=== PATIENT | female | born 1965 | race American Indian/Alaskan Native ===

== ENCOUNTER 2021-10-21 07:46 | Day surgery (SDC) | payer BC ==
[2021-10-20 13:24] LABS: Basophils % (Auto) 0.5 % (0.0-1.8); Eosinophils # (Auto) 0.1 K/mm3 (0.0-0.4); Hematocrit 39.8 % (30.3-42.9); Hemoglobin 13.3 gm/dl (10.1-14.3); Lymphocytes # (Auto) 3.6 K/mm3 (1.2-5.4); Lymphocytes % (Auto) 40.6 % (13.4-35.0); Mean Corpuscular HGB Conc 33 % (30-34); Mean Corpuscular Volume 82 fl (79-97); Monocytes # (Auto) 0.6 K/mm3 (0.0-0.8); Monocytes % (Auto) 6.3 % (0.0-7.3); Platelet Count 248 K/mm3 (140-440); Red Blood Count 4.88 M/mm3 (3.65-5.03); Red Cell Distribution Width 14.7 % (13.2-15.2)
[2021-10-20 13:42] LABS: Alanine Aminotransferase 15 units/L (7-56); Albumin 4.7 g/dL (3.9-5); BUN/Creatinine Ratio 26; Blood Urea Nitrogen 29 mg/dL (7-17); Hemolysis Index 65
[2021-10-21] MEDS ORDERED: SILVER NITRATE APPLICATOR 1 EA TP ONE (07:52)
[2021-10-21] MEDS ORDERED: LACTATED RINGERS 1,000 ML ONE (08:40)
--- NOTE | 2021-10-21 08:42 | History and Physical Report ---
History of Present Illness Date of examination: 10/20/21 Chief complaint: postmenopausal bleeding History of present illness: Pt is a 56 year old -[place] female who presents for surgical evaluation of postmenopausal bleeding. Past History Past Medical History: hypertension, diabetes, high cholesterol, other (obesity) Past Surgical History: section [employer] History: fibroids Family/Genetic History: diabetes, heart disease Social history: no significant social history - Obstetrical History : 2 Para: 2 Hx # Term Pregnancies: 2 Number of Pregnancies: 0 Spontaneous Abortions: 0 Induced : 0 Number of Living Children: 2 Medications and Allergies Allergies Allergy/AdvReac Type Severity Reaction Status Date / Time No Known Allergies Allergy Unverified 10/12/21 16:23 Home Medications Medication Instructions Recorded Confirmed Last Taken Type AtorvaSTATin [Lipitor] 20 mg PO QHS 10/12/21 10/12/21 Unknown History Lisinopril [Zestril] 5 mg PO DAILY 10/12/21 10/12/21 Unknown History Triamterene 75 mg PO DAILY 10/12/21 10/12/21 Unknown History metFORMIN [Glucophage] 500 mg PO QDAY 10/12/21 10/12/21 Unknown History - Physical Exam Breasts: Positive: deferred Cardiovascular: Regular rate Lungs: Positive: Clear to auscultation Abdomen: Positive: soft (obese ) Extremities: Positive: normal Results Result Diagrams: 10/20/21 12:50 10/20/21 12:50 Abnormal lab results 10/20/21 10/20/21 Range/Units 12:50 12:50 MCH 27 L (28-32) pg Lymph % (Auto) 40.6 H (13.4-35.0) % BUN 29 H (7-17) mg/dL Glucose 118 H (65-100) mg/dL Total Protein 8.9 H (6.3-8.2) g/dL All other labs normal. Assessment and Plan A: Postmenopausal Bleeding Fibroid Uterus Diabetes Hyperlipidemia Hypertension P: Exam under anesthesia, hysteroscopy, dilation and curettage, Myosure endometrial sampling and other indicated procedures
[2021-10-21] MEDS ORDERED: ceFAZolin/Water 2 GM/20 ML 2 GM/20 ML SYRINGE IV SCH (09:00)
[2021-10-21] MEDS ORDERED: HYDROmorphone 0.5 MG/0.5 ML INJ IV PRN ×2 (09:07→09:30)
--- NOTE | 2021-10-21 09:07 | Anesthesia Day of Surgery ---
Anesthesia Day of Surgery - Day of Surgery Patient Examined: Yes Patient H&P Reviewed: Yes Patient is NPO: Yes
--- NOTE | 2021-10-21 09:08 | Anesthesia Consultation ---
Anesthesia Consult and Med Hx Date of service: 10/21/21 - Airway Anesthetic Teeth Evaluation: Crowns (Missing) ROM Head & Neck: Adequate Mental/Hyoid Distance: Adequate Mallampati Class: Class II Intubation Access Assessment: Probably Good - Pre-Operative Health Status ASA Pre-Surgery Classification: ASA2 Proposed Anesthetic Plan: General - Pulmonary Hx Smoking: No Hx Sleep Apnea: No (HIGH RISK ON NIC SCREEN-SNORES) - Cardiovascular System Hx Hypertension: Yes Hx Heart Attack/AMI: No - Gastrointestinal Hx Gastroesophageal Reflux Disease: No - Endocrine Hx Non-Insulin Dependent Diabetes: Yes - Hematic Hx Anemia: No Hx Sickle Cell Disease: No - Other Systems Hx Cancer: No Hx Obesity: Yes - Additional Comments Anesthesia Medical History Comments: NO BLOOD-JEHOVA'S WITNESS
[2021-10-21] MEDS ORDERED: ONDANSETRON 4 MG/2 ML INJ IV PRN (09:30)
[2021-10-21] MEDS ORDERED: LIDOCAINE MPF (2%) 20 MG/1 ML VIAL 5 ML ONE (09:56)
[2021-10-21] MEDS ORDERED: ONDANSETRON 4 MG/2 ML INJ ONE (09:56)
[2021-10-21] MEDS ORDERED: fentaNYL 100 MCG/2 ML INJ ONE (09:56)
[2021-10-21] MEDS ORDERED: propofoL 200 MG/20 ML VIAL IV ONE (09:57)
[2021-10-21] MEDS ORDERED: LACTATED RINGERS 1,000 ML IV SCH (10:00)
[2021-10-21] MEDS ORDERED: SODIUM CHLORIDE 0.9% IRRIG SOLN 2000 ML IR ONE (11:00)
[2021-10-21] MEDS ORDERED: PHENYLEPHRINE/NS 1,000 MCG/10 ML SYRINGE (OR USE) IV ONE (11:11)
--- NOTE | 2021-10-21 11:18 | Operative Report ---
Operative Report Operative Report: Date of Procedure: October 21, 2021 Preoperative Diagnosis: 1) Postmenopausal Bleeding 2) Fibroid Uterus 3) Obesity Postoperative Diagnosis: Same 4) Endometrial Polyp Procedure: 1)Hysteroscopy 2)Myosure Endometrial Sampling with polypectomy Surgeon: Ivette Wheeler M.D. Findings: 1) Anteverted uterus that sounded to 8.5 cm 2) Proliferative endoemtrium with submucosal fibroid in right lower uterine segment and left suspected endometrial polyp originating from left ostium Anesthesia: General with LMA Estimated blood loss: 30 mL Specimens: Endometrial curettings to pathology Drains: None Complications: None Disposition: Stable to PACU Indications for procedure: Pt is a 56-year-old G2, P2 presents for surgical management of postmenopausal bleeding. Operation in detail: After the risks, benefits, alternatives and complications of the procedure were explained to the patient, she gave informed consent for the procedure. She was subsequently taken to the operating room and placed in the dorsal supine position with her IV noted to be running well. SCDs noted to be in place and functioning. General anesthesia was then induced without difficulty. The patient was then placed in dorsal lithotomy position and prepped and draped in normal sterile fashion. A timeout was performed. An exam under anesthesia was performed yielding a mobile antevered uterus. A red rubber catheter was used to drain the bladder yielding clear urine. An open sided speculum was then placed into the vagina for adequate visualization of the cervix. The anterior lip of the cervix was then grasped with a tenaculum for traction. The uterus was sounded to 8.5 cm. The cervix was then dilated to accommodate a #19 Akhtar dilator. At this time, a hysteroscope was introduced to visualize the endometrial cavity which revealed proliferative endoemtrium with submucosal fibroid in right lower uterine segment and left suspected endometrial polyp originating from left ostium . The Myosure device was used shave down the fibroid, excise the polyp, and sample the endometrium. All curettings were sent to pathology. All instruments were removed from the uterus atraumatically. A sharp curettage was then performed and the curettings were sent to pathology as well. At this time, the single-tooth tenaculum was removed from the cervix. Silver nitrate was placed on the tenaculum puncture sites for hemostasis. All instruments were removed from the vagina. At the 7 oclock position of the introitus, a small laceration was noted in the atrophic mucosa was noted after removal of the speculum. The laceration was reappoximated with a figure of eight of 3-0 Vicryl. Hemostasis was noted. The procedure was then ended. The patient was placed into the dorsal supine position and extubated without difficulty. She was subsequently taken to the PACU in stable condition. She tolerated the procedure well. All counts were correct 2.
--- NOTE | 2021-10-21 11:19 | Short Stay Summary ---
Short Stay Documentation Date of service: 10/21/21 - History H&P: dictated Social history: no significant social history - Allergies and Medications Current Medications: Allergies No Known Allergies Allergy (Unverified 10/12/21 16:23) Home Medications Medication Instructions Recorded Confirmed Last Taken Type AtorvaSTATin [Lipitor] 20 mg PO QHS 10/12/21 10/12/21 Unknown History Lisinopril [Zestril] 5 mg PO DAILY 10/12/21 10/12/21 Unknown History Triamterene 75 mg PO DAILY 10/12/21 10/12/21 Unknown History metFORMIN [Glucophage] 500 mg PO QDAY 10/12/21 10/12/21 Unknown History Active Medications Hydromorphone HCl (Hydromorphone 0.5 Mg/0.5 Ml Inj) 0.25 mg IV Q10MIN PRN PRN Reason: Pain, Moderate (4-6) Stop: 10/21/21 20:00 Hydromorphone HCl (Hydromorphone 0.5 Mg/0.5 Ml Inj) 0.5 mg IV Q10MIN PRN PRN Reason: Pain , Severe (7-10) Stop: 10/21/21 20:00 Cefazolin Sodium (Ancef/Sterile Water 2 Gm/20 Ml) 2 gm in 20 mls @ 80 mls/hr IV PREOP LUIZ; Protocol Stop: 10/21/21 20:00 Lactated Ringer's (Lactated Ringers) 1,000 mls @ 125 mls/hr IV DIRECT LUIZ Last Admin: 10/21/21 08:44 Dose: 125 mls/hr Ondansetron HCl (Ondansetron 4 Mg/2 Ml Inj) 4 mg IV ONCE PRN PRN Reason: Nausea And Vomiting - Physical exam Breasts: deferred - Brief post op/procedure progress note Date of procedure: 10/21/21 Pre-op diagnosis: 1) Postmenopausal Bleeding 2) Fibroid Uterus 3) Obesity Post-op diagnosis: same Procedure: 1)Hysteroscopy 2)Myosure Endometrial Sampling with polypectomy Anesthesia: GETA (with LMA ) Findings: 1) Anteverted uterus that sounded to 8.5 cm 2) Proliferative endoemtrium with submucosal fibroid in right lower uterine segment and left suspected endometrial polyp originating from left ostium Surgeon: TYREE WHEELER Estimated blood loss: minimal (30 mL) Pathology: list (endometrial curettings) Specimen disposition: to lab Condition: stable - Hospital course Hospital course: This patient underwent hysteroscopy, dilation and curettage, Mysosure endometrial sampling with polypectomy which she tolerated well. She was observed in the PACU until she met discharge criteria. She will follow up in the office in [address] Wheeler on 11/02/21 at 2 pm. - Disposition Condition at discharge: Stable Disposition: 01 HOME / SELF CARE / HOMELESS - Discharge Diagnoses (1) Postmenopausal bleeding Status: Acute (2) Obesity Status: Acute Qualifiers: Obesity classification: adult class 2 (BMI 35 - 39.9) Serious obesity comorbidity presence: without serious comorbidity Body mass index: BMI 35.0- 35.9 Short Stay Discharge Plan Activity: other (Nothing in vagina, no tub baths, no intercourse for 4 weeks ) Weight Bearing Status: Full Weight Bearing Diet: regular Follow up with: EILEEN CONRAD MD [Primary Care Provider] - 7 Days TYREE WHEELER MD [Staff Physician] - 11/02/21 (Appt already scheduled at 2 pm on November 02, 2021 )
[2021-10-21 12:27] VITALS: BP 125/72
--- NOTE | 2021-10-21 13:46 | Post Anesthesia Evaluation ---
- Post Anesthesia Evaluation Patient Participated: Yes Airway Patent: Yes Stable Respiratory Function: Yes Nausea/Vomiting: No Temp > 96.8F: Yes Pain Manageable: Yes Adequeate Hydration: Yes Anesthesia Complications: No Block Receding Appropriately: Not Applicable Patient on Ventilator: No
== END 2021-10-21 13:00 | disposition home or self-care (01) ==
LOC: OR 07:46
PROVIDERS: ATTEND Obstetrics & Gynecology
DX: N95.0 Postmenopausal bleeding (principal); E66.9 Obesity, unspecified; N84.0 Polyp of corpus uteri; E78.00 Pure hypercholesterolemia, unspecified; I10 Essential (primary) hypertension; E11.9 Type 2 diabetes mellitus without complications; Z79.899 Other long term (current) drug therapy; Z79.84 Long term (current) use of oral hypoglycemic drugs; Z68.35 Body mass index [BMI] 35.0-35.9, adult; Z98.890 Other specified postprocedural states; Z98.891 History of uterine scar from previous surgery
CPT/HCPCS: 36415; 58558; 80053; 82962; 84132; 85025; 88305; C1782; J0690; J2370; J2405; J2704; J3010; J7120